=== PATIENT | female | born 1940 | race Caucasian/White ===

== ENCOUNTER 2017-06-05 14:34 | Emergency (ER) | payer OTHER ==
[2017-06-05 14:56] VITALS: BP 127/73; PULSE 86; RESP 18; TEMP 97.7; O2SAT 91
--- NOTE | 2017-06-05 15:07 | EDPHY ---
H & P Stated Complaint: SENT FOR US OF L LOWER LEG/SWELLING Time Seen by Provider: 06/05/17 14:59 HPI/ROS: CHIEF COMPLAINT: Left leg swelling HISTORY OF PRESENT ILLNESS: The patient is a 77-year-old female who is sent from Dr. Mendoza pause office to rule out DVT. She had a thoracic and lumbar spinal fusion in April. She has been recovering well from this but during her follow-up appointment today it was noticed that she has some edema in her left ankle. She has some pain behind her ankle and knee. They wanted her to come to the ER to rule out DVT. Patient states that she had similar swelling in her left leg after hernia operation a decade ago. They did the ultrasound and lab work at the time but never found the cause. She has not had a fever. She has not had any chest pain or shortness of breath. REVIEW OF SYSTEMS: Constitutional: denies: chills, fever, recent illness, recent injury EENTM: denies: blurred vision, double vision, nose congestion Respiratory: denies: cough, shortness of breath Cardiac: denies: chest pain, irregular heart rate, lightheadedness, palpitations Gastrointestinal/Abdominal: denies: abdominal pain, diarrhea, nausea, vomiting, blood streaked stools Genitourinary: denies: dysuria, frequency, hematuria, pain Musculoskeletal: See HPI Skin: denies: lesions, rash, jaundice, bruising Neurological: denies: headache, numbness, paresthesia, tingling, dizziness, weakness Hematologic/Lymphatic: denies: blood clots, easy bleeding, easy bruising Immunologic/allergic: denies: HIV/AIDS, transplant EXAM: GENERAL: Well-appearing, well-nourished and in no acute distress. HEAD: Atraumatic, normocephalic. EYES: Pupils equal round and reactive to light, extraocular movements intact, sclera anicteric, conjunctiva are normal. ENT: TMs normal, nares patent, oropharynx clear without exudates. Moist mucous membranes. NECK: Normal range of motion, supple without lymphadenopathy or JVD. LUNGS: Breath sounds clear to auscultation bilaterally and equal. No wheezes rales or rhonchi. HEART: Regular rate and rhythm without murmurs, rubs or gallops. ABDOMEN: Soft, nontender, normoactive bowel sounds. No guarding, no rebound. No masses appreciated. BACK: No CVA tenderness, no spinal tenderness, step-offs or deformities EXTREMITIES: 1+ pitting edema left lower extremity, no palpable cords, no tenderness, negative Homans NEUROLOGICAL: Cranial nerves II through XII grossly intact. Normal speech, normal gait. 5/5 strength, normal movement in all extremities, normal sensation PSYCH: Normal mood, normal affect. SKIN: Warm, dry, normal turgor, no visible rashes or lesions. Source: Patient, RN/MD Exam Limitations: No limitations - Personal History Current Tetanus/Diphtheria Vaccine: Yes - Medical/Surgical History Hx Asthma: No Hx Chronic Respiratory Disease: No Hx Diabetes: No Hx Cardiac Disease: No Hx Renal Disease: No Hx Cirrhosis: No Hx Alcoholism: No Hx HIV/AIDS: No Hx Splenectomy or Spleen Trauma: No Other PMH: BACK SURGERY - Family History Significant Family History: No pertinent family hx - Social History Smoking Status: Former smoker Alcohol Use: Sober Drug Use: None Constitutional: Initial Vital Signs Temperature (C) 36.5 C 06/05/17 14:48 Heart Rate 86 06/05/17 14:48 Respiratory Rate 18 06/05/17 14:48 Blood Pressure 127/73 H 06/05/17 14:48 O2 Sat (%) 91 L 06/05/17 14:48 O2 Delivery Mode Room Air Allergies/Adverse Reactions: Sulfa (Sulfonamide Antibiotics) Allergy (Verified 06/05/17 14:45) Home Medications: Medication Instructions Recorded Acyclovir 06/05/17 Cymbalta 06/05/17 Estrace 06/05/17 FENOFIBRATE 06/05/17 FLUoxetine 06/05/17 Hydrocodon-Acetaminoph 7.5-750 06/05/17 Hysingla ER 06/05/17 LYRICA 06/05/17 Myrbetriq 06/05/17 Prolia 06/05/17 Vitamins And Supplements 06/05/17 Medical Decision Making - Diagnostics Imaging Results: Imaging Impressions Extremity Venous Study 06/05/17 15:05 Impression: There is no sonographic evidence of deep or superficial vein thrombosis in the left lower extremity. Findings were discussed with TODD JANE MD at 16:02, on 06/05/2017. Imaging: Discussed imaging studies w/ systems test technician Radiologist ED Course/Re-evaluation: Will perform an ultrasound exam. The patient is declining blood work. 4:10 p.m. we discussed the ultrasound results. Patient is happy with this. She is eager to go home. She continues to decline further workup. Family is here to take her. Differential Diagnosis: Partial list of the Differential diagnosis considered include but were not limited to; DVT, lymphatic drainage and although unlikely based on the history and physical exam, I also considered infection, cellulitis, vascular obstruction. I discussed these differential diagnoses and the plan with the patient as well as the usual and expected course. The patient understands that the diagnosis is provisional and that in medicine we are not always correct and that further workup is often warranted. Usual and customary warnings were given. All of the patient's questions were answered. The patient was instructed to return to the emergency department should the symptoms at all worsen or return, otherwise to followup with the physician as we discussed. Departure - Departure Disposition: Home, Routine, Self-Care Clinical Impression: Lower extremity edema Condition: Fair Instructions: Leg Edema (ED) Referrals: NONE *PRIMARY CARE P,. [Primary Care Provider] - As per Instructions
== END 2017-06-05 16:24 | disposition home or self-care (01) ==
DX: R60.0 Localized edema (principal); Z87.891 Personal history of nicotine dependence